=== PATIENT | female | born 1990 | race Asian ===

== ENCOUNTER 2020-03-01 09:25 | Emergency (ER) | payer BC ==
[~2020-03-01] VITALS: Ht 162.6 cm; Wt 82.0 kg
[2020-03-01] MEDS ORDERED: ACETAMINOPHEN 325MG TABLET PO ONE (10:15)
[2020-03-01] MEDS ORDERED: METOCLOPRAMIDE HCL 10MG TABLET PO ONE (10:15)
[2020-03-01 12:15] VITALS: BP 137/72
== END 2020-03-01 12:16 | disposition home or self-care (01) ==
LOC: ER 09:50
DX: R06.02 Shortness of breath (principal); R11.2 Nausea with vomiting, unspecified; F16.10 Hallucinogen abuse, uncomplicated; T50.Z95A Adverse effect of other vaccines and biological substances, initial encounter; Y92.89 Other specified places as the place of occurrence of the external cause
CPT/HCPCS: 71045; 99283; J8597